=== PATIENT | female | born 1980 | race Caucasian/White ===

== ENCOUNTER → 2017-02-18 | Outpatient (CLI) | payer BC ==
[~2017-02-18] MED LIST: CHOL1000 PO; FERR324T PO; LEVO112T4 PO
[2017-02-18 13:39] LABS: HEMATOCRIT 41.4 % (37-47); MEAN CELL VOLUME 94.5 fL (80-100); MEAN CORPUSCULAR HEMOGLOBIN 31.5 pg (25-34); MEAN CORPUSCULAR HGB CONC 33.3 g/dl (32-36); MEAN PLATELET VOLUME 11.2 fL (7.4-10.4); PLATELET COUNT 170 K/uL (130-400); RED BLOOD COUNT 4.38 M/uL (4.2-5.4); WHITE BLOOD COUNT 6.15 K/uL (4.8-10.8)
[2017-02-18 13:41] LABS: PREG INTERNAL NEGATIVE QC NEG CLEAR BACKGROUND; PREG INTERNAL POSITIVE QC POS CONTROL LINE
[2017-02-18 13:53] LABS: BLOOD UREA NITROGEN 14 mg/dl (7-18); BUN/CREATININE RATIO 16.1 (10-20); CALCIUM 9.4 mg/dl (8.5-10.1); CARBON DIOXIDE 29 mmol/L (21-32); CHLORIDE 102 mmol/L (98-107); CREATININE 0.89 mg/dl (0.60-1.20); GLUCOSE 78 mg/dl (70-99); POTASSIUM 4.3 mmol/L (3.5-5.1); SODIUM 138 mmol/L (136-145)
[2017-02-18 13:58] LABS: FERRITIN 10.4 ng/ml (8.0-388.0)
[2017-02-18 13:59] LABS: PROLACTIN 3.72 ng/mL
[2017-02-23 19:33] LABS: TESTOSTERONE,TOTAL 32 ng/dL (2-45); TSI <89 % baseline (<140)
== END | disposition home or self-care (01) ==
LOC: C.LAB1850 12:10
PROVIDERS: ATTEND Internal Medicine Endocrinology, Diabetes & Metabolism
DX: N91.5 Oligomenorrhea, unspecified (principal); E03.9 Hypothyroidism, unspecified

== ENCOUNTER → 2017-04-25 | Outpatient (CLI) | payer BC ==
[2017-04-25 15:33] LABS: THYROID STIMULATING HORMONE 0.081 uIu/ml (0.300-4.500)
== END | disposition home or self-care (01) ==
LOC: C.LAB1850 12:21
PROVIDERS: ATTEND Internal Medicine Endocrinology, Diabetes & Metabolism
DX: N91.2 Amenorrhea, unspecified (principal); E03.9 Hypothyroidism, unspecified; M79.1 Myalgia

== ENCOUNTER → 2017-05-06 | Day surgery (SDC) | payer BC ==
[~2017-05-06] VITALS: Ht 175.3 cm; Wt 73.0 kg
[~2017-05-06] MED LIST changes: +COSYNTROPIN INJ 1 MCG in SYRINGE 0 ML IV SCH; +PATIENT'S ALLERGY INFO NEEDS ENTERED SCH
[2017-05-06 08:23] VITALS: BP 101/65; PULSE 53; TEMP 36.3; O2SAT 100; Ht 175.3 cm; Wt 73.0 kg
[2017-05-06 09:24] VITALS: BP 100/60; PULSE 49; TEMP 36; O2SAT 100
[2017-05-06 09:54] VITALS: BP 98/66; PULSE 54; TEMP 36; O2SAT 99
== END | disposition home or self-care (01) ==
LOC: C.MTU 07:46
PROVIDERS: ATTEND Internal Medicine Endocrinology, Diabetes & Metabolism